=== PATIENT | female | born 1940 | race Two or more races ===

== ENCOUNTER → 2018-02-17 14:42 | Outpatient (CLI) | payer OTHER ==
[~2018-02-17 14:42] MED LIST: CATAPRES0.1 MG; CATAPRES0.3 M1 PO; HYZAAR 100-121 UDTAB; HYZAAR 50/12.51 TAB PO; NEURONTIN600 MG PO; PERCOCET 10-3251 TAB; PERCOCET 5/3251 TAB PO; ULTRACET PO
== END | disposition home or self-care (01) ==
LOC: LAB 14:42
DX: I10 Essential (primary) hypertension (principal); E11.9 Type 2 diabetes mellitus without complications; E03.8 Other specified hypothyroidism; E78.2 Mixed hyperlipidemia; M46.47 Discitis, unspecified, lumbosacral region; M12.88 Other specific arthropathies, not elsewhere classified, other specified site; M47.899 Other spondylosis, site unspecified

== ENCOUNTER 2018-02-18 13:04 | Outpatient (CLI) | payer OTHER | END 2018-02-18 13:09 | disposition home or self-care (01) | LOC: SONOGRAMA 13:04 | DX: R10.84 Generalized abdominal pain (principal) ==

== ENCOUNTER 2018-03-19 16:40 | Inpatient (IN) | payer OTHER ==
[~2018-03-19] VITALS: Ht 160 cm; Wt 90.7 kg
== END 2018-03-21 19:07 | disposition left against medical advice (07) | DRG 683 ==
LOC: ER 16:40 → SEC-K 03-20 06:24 → MEDI 03-20 06:24
PROC: BT43ZZZ Ultrasonography of Bilateral Kidneys (ICD-10-PCS; principal; 2018-03-20)
DX: N17.8 Other acute kidney failure (principal); E87.1 Hypo-osmolality and hyponatremia; B37.49 Other urogenital candidiasis; E87.6 Hypokalemia; E86.0 Dehydration; Z85.038 Personal history of other malignant neoplasm of large intestine; B96.5 Pseudomonas (aeruginosa) (mallei) (pseudomallei) as the cause of diseases classified elsewhere; E88.09 Other disorders of plasma-protein metabolism, not elsewhere classified

== ENCOUNTER 2018-07-29 08:44 | Outpatient (CLI) | payer OTHER | END 2018-07-29 09:54 | disposition home or self-care (01) | LOC: TOM 08:44 | DX: R10.32 Left lower quadrant pain (principal); R10.31 Right lower quadrant pain ==

== ENCOUNTER 2019-04-20 17:05 | Emergency (ER) | payer OTHER ==
[~2019-04-20] VITALS: Ht 152.4 cm; Wt 81.6 kg
[2019-04-20] MEDS ORDERED: ARICEPT10 MG PO (17:55)
== END 2019-04-20 21:41 | disposition home or self-care (01) ==
LOC: ER 17:05
DX: R42 Dizziness and giddiness (principal)

== ENCOUNTER 2019-12-12 18:59 | Emergency (ER) | payer OTHER ==
[~2019-12-12] VITALS: Ht 149.9 cm; Wt 104.3 kg
[~2019-12-12 18:59] MED LIST changes: +ARICEPT10 MG PO
== END 2019-12-12 21:49 | disposition designated cancer center or children's hospital (05) ==
LOC: ER 18:59
DX: K85.80 Other acute pancreatitis without necrosis or infection (principal); D64.89 Other specified anemias; E83.51 Hypocalcemia; R06.02 Shortness of breath; R10.13 Epigastric pain; G30.8 Other Alzheimer's disease; F02.80 Dementia in other diseases classified elsewhere, unspecified severity, without behavioral disturbance, psychotic disturbance, mood disturbance, and anxiety; Z03.818 Encounter for observation for suspected exposure to other biological agents ruled out